=== PATIENT | female | born 2005 | race Two or more races ===

== ENCOUNTER 2023-03-27 14:25 | Emergency (ER) | payer MEDICAID ==
[~2023-03-27] VITALS: Ht 157.5 cm; Wt 65.0 kg
[2023-03-27 14:25] VITALS: BP 116/72; PULSE 88; RESP 16; O2SAT 97
[2023-03-27] MEDS ORDERED: SODIUM CHLORIDE 0.9% 1,000 ML IVB ONE (14:45)
[2023-03-27 15:28] LABS: Basophils # (auto) 0 10 ^3/uL (0-0.2); Hemoglobin 12.6 g/dL (12.2-16.2); Lymphocytes # (auto) 1.3 10 ^3/uL (0.4-5.4); Nucleated Red Blood Cells % 0.1 %
[2023-03-27 15:29] LABS: Urine Bacteria NONE SEEN /hpf (None Seen); Urine Blood 3+ /uL (Negative); Urine Clarity Clear (Clear); Urine Color Yellow (Yellow); Urine Hyaline Cast FEW /lpf (0 - 2); Urine Mucus FEW (None Seen); Urine Protein, UAD TRACE (Negative); Urine Specific Gravity 1.029 (1.001-1.035); Urine Urobilinogen Normal (Negative); Urine WBC 4 /hpf (0 - 5); Urine pH 5.5 (5.0-8.0)
[2023-03-27 15:31] LABS: Basophils % (auto) 0.5 % (0.0-2.0); Eosinophils # (auto) 0 10 ^3/uL (0-0.8); Eosinophils % (auto) 0.6 % (0.0-7.0); Hematocrit 38.1 % (36.0-46.0); Lymphocytes % (auto) 16.6 % (10.0-50.0); Mean Corpuscular Hgb Conc. 33.1 g/dL (32.0-36.0); Mean Corpuscular Volume 81.5 fL (80.0-100.0); Monocytes # (auto) 0.4 10 ^3/uL (0-1.3); Monocytes % (auto) 5.3 % (0.0-12.0); Red Blood Cells 4.68 10^6/uL (4.0-5.20); Red Cell Distribution Width 15.7 % (11.8-14.3); White Blood Cell 7.8 10^3/uL (4.4-10.8)
[2023-03-27 15:39] LABS: Alanine Aminotransferase 16 U/L (7-40); Albumin 4.7 g/dL (3.2-4.8); Alkaline Phosphatase 88 U/L (46-116); Anion Gap 8 (5-15); Aspartate Aminotransferase 12 U/L (13-40); BUN/Creatinine Ratio 22.9 (10.0-20.0); Bilirubin, Total 0.3 mg/dL (0.2-1.0); Blood Urea Nitrogen 16 mg/dL (9-23); Calcium 9.6 mg/dL (8.5-10.1); Carbon Dioxide 24 mmol/L (20-30); Chloride 107 mmol/L (98-107); Glucose 152 mg/dL (74-106); Potassium 3.6 mmol/L (3.5-5.1); Sodium 139 mmol/L (136-145); Total Protein 7.7 g/dL (5.7-8.2)
== END 2023-03-27 16:24 | disposition home or self-care (01) ==
LOC: ER 14:25
DX: R55 Syncope and collapse (principal); R73.9 Hyperglycemia, unspecified; Z32.02 Encounter for pregnancy test, result negative
CPT/HCPCS: 36415; 70450; 71046; 80053; 81001; 81025; 85025; 96360; 99285; J7030